=== PATIENT | female | born 1955 | race Caucasian/White ===

== ENCOUNTER 2017-03-12 09:32 | Emergency (ER) | payer OTHER ==
[2017-03-12 09:39] VITALS: BP 131/77
[2017-03-12] MEDS ORDERED: Ketorolac INJ* 30 MG/ML 1 ML VIAL IV PUSH ONE (10:18)
[2017-03-12] MEDS ORDERED: NS 0.9% 1000 ML* 1,000 ML IV ONE (10:18)
[2017-03-12] MEDS ORDERED: diPHENhydraMINE IV* 50 MG/ML 1 ml VIAL (BENADRYL) IV ONE (10:20)
--- NOTE | 2017-03-12 10:30 | ED ---
Headache - HPI Summary HPI Summary: Rt hand dominant pt here w/ Rt sided KLINE x 2 days. Started as intermittent sharp pain along Rt shoulder and traveled up into Rt side of head. She tolerated this but last night kept her up. She denies alleviation or exacerbation with movement. She has a h/o back pain, muscle tightness and migraines. Had relief w / recent chiropractic adjustment but sx are starting to return. Denies N/V, fever, chills, URI sx, visual change although admits to mild light sensitivity. Denies chest pain, SOB, numbness, tingling, weakness, slurred speech, syncope. Takes gabapentin for chronic pain and trazodone to sleep at night. Reports she was on morphine for pain in the past and is happy to be off of this medication as she can now function - works PT at [employer], walks her dog every morning, helps take care of her grandchild (4 y.o. weighs 30lbs), crochets /knits/quilts and uses e-tablet while watching TV in the evenings. No recent injury she recalls. NOTE: h/o gastric ulcers - takes omeprazole daily and drinks a smoothie for breakfast. This combination has improved stomach pain. Denies h/o anemia, GI bleed, current rectal bleeding/dark tarry stools. Follows w/ PCP. - History Of Current Complaint Chief Complaint: EDHeadache Stated Complaint: PAIN FROM SHOULDER TO HEAD Time Seen by Provider: 03/12/17 09:53 Hx Obtained From: Patient - Allergies/Home Medications Allergies/Adverse Reactions: Allergies Allergy/AdvReac Type Severity Reaction Status Date / Time Pregabalin [From Lyrica] Allergy Severe Dizziness Verified 03/12/17 09:36 Tramadol [From Ultram] Allergy Severe "FEELS Verified 03/12/17 09:36 LIKE SKIN IS CRAWLING" Latex Allergy Intermediate Rash Verified 03/12/17 09:36 SULFA DRUGS Allergy Severe Hives Uncoded 03/12/17 09:36 PMH/Surg Hx/FS Hx/Imm Hx Previously Healthy: Yes Endocrine/Hematology History: Reports: Hx Anemia - during only Denies: Hx Anticoagulant Therapy, Hx Blood Disorders, Hx Unexplained Bleeding Cardiovascular History: Denies: Hx Aneurysm, Hx Cardiac Arrest, Hx Congenital Heart Disease, Hx Congestive Heart Failure, Hx Hypercholesterolemia, Hx Hypertension GI History: Reports: Hx Ulcer - gastritis - currently take omeprazole Denies: Hx Gastrointestinal Bleed History: Reports: Hx Kidney Infection - X 1 IN THE PAST, YEARS AGO Musculoskeletal History: Reports: Hx Arthritis - LEFT THUMB, NECK, LOWER BACK, FINGERS, Other Musculoskeletal History - DJD, TENOSYNOVITIS RADIAL STYLOID LEFT HAND Sensory History: Reports: Hx Contacts or Glasses - GLASSES Denies: Hx Hearing Aid Opthamlomology History: Reports: Hx Contacts or Glasses - GLASSES Neurological History: Reports: Hx Migraine - HX OF - NONE RECENTLY Psychiatric History: Reports: Hx Anxiety - ON MEDICATION FOR, Hx Depression - ON MEDICATION FOR - Surgical History Surgery Procedure, Year, and Place: AGE 4 TONSILLECTOMY- [place]. 1972- PILONIDAL CYST-[place]. 1977-TUBAL LIGATION- [place]. 1992-SINUS SURGERY- [place]. 08/[place] [facility] [place] Anesthesia Reactions: No Infectious Disease History: No Infectious Disease History: Denies: History Other Infectious Disease, Traveled Outside the in Last 30 Days - Family History Known Family History: Positive: Cardiac Disease - cardiac dz, father w/ aneurysm , Diabetes - Social History Occupation: Employed Part-time Lives: Alone Alcohol Use: None Hx Substance Use: No Substance Use Type: Reports: None Smoking Status (MU): Current Every Day Smoker Type: Cigarettes Amount Used/How Often: 3/4 PPD X 49 YEARS Length of Time of Smoking/Using Tobacco: 49 YRS Have You Smoked in the Last Year: Yes Review of Systems Constitutional: Negative Positive: Photophobia - mild. Negative: Blurred Vision, Diplopia, Drainage, Erythema ENT: Negative Cardiovascular: Negative Negative: Chest Pain Respiratory: Negative Negative: Shortness Of Breath Gastrointestinal: Negative Genitourinary: Negative Positive: no symptoms reported Musculoskeletal: Other - see HPI Skin: Negative Positive: Headache - see HPI. Negative: Weakness, Paresthesia, Numbness Psychological: Normal All Other Systems Reviewed And Are Negative: Yes Physical Exam Triage Information Reviewed: Yes Vital Signs On Initial Exam: Initial Vitals Temp Pulse Resp BP Pulse Ox 97.5 F 77 16 131/77 99 03/12/17 09:37 03/12/17 09:37 03/12/17 09:37 03/12/17 09:37 03/12/17 09:37 Vital Signs Reviewed: Yes Appearance: Positive: Well-Appearing, No Pain Distress - however pt is resting room w/ lights out, Well-Nourished - thin Skin: Positive: Warm, Dry Head/Face: Positive: Normal Head/Face Inspection - sinuses NTTP Eyes: Positive: Normal, EOMI, SUSANA - mild photophobia, Conjunctiva Clear ENT: Positive: Normal ENT inspection, Hearing grossly normal, Pharynx normal, TMs normal. Negative: Nasal congestion, Nasal drainage, Tonsillar swelling, Tonsillar exudate Neck: Positive: Supple, Nontender, No Lymphadenopathy Respiratory/Lung Sounds: Positive: Clear to Auscultation, Breath Sounds Present. Negative: Rales, Rhonchi, Wheezes Cardiovascular: Positive: Normal, RRR, Pulses are Symmetrical in both Upper and Lower Extremities, S1, S2. Negative: Murmur, Rub Abdomen Description: Positive: Nontender, No Organomegaly, Soft Bowel Sounds: Positive: Present Musculoskeletal: Positive: Normal, Strength/ROM Intact Neurological: Positive: Normal, Sensory/Motor Intact, Alert, Oriented to Person Place, Time, CN Intact II-III Psychiatric: Positive: Normal - [place] Coma Scale Coma Scale Total: 15 Diagnostics - Vital Signs Vital Signs Temp Pulse Resp BP Pulse Ox 03/12/17 09:37 97.5 F 77 16 131/77 99 - Laboratory Lab Statement: Any lab studies that have been ordered have been reviewed, and results considered in the medical decision making process. Re-Evaluation - Re-Evaluation First Eval Change: Improved - "I feel much better" Headache Course/Dx - Course Course Of Treatment: Pt presents w/ progressive worening of Rt sided KLINE - thought to be tension KLINE w/ migraine. Pt improved w/ migraine cocktail and feels she is ready to go home. Advised rest and f/u w/ PCP, chiropractor. Reviewed danger s/sx of when to return to ED - pt agrees w/ plan. - Diagnoses Provider Diagnoses: Acute tension headache Discharge - Discharge Plan Condition: Stable Disposition: HOME Patient Education Materials: Tension Headache (ED), Muscle Strain (ED) Forms: *Work Release Referrals: Hannah Styles MD [Primary Care Provider] - Additional Instructions: You appear to have a tension headache, triggering a migraine today. This appears to be from tight right sided muscle tension with spasm. Your symptoms improved with IV fluids, and NSAID and benadryl. It is advised that you rest, gently stretch and stay hydrated. Follow-up with PCP and chiropractor. *If headache returns and is worse or if you develop change in vision, neck pain , chest pain, trouble breathing, numbness, tingling, weakness, return to ED
== END 2017-03-12 12:00 | disposition home or self-care (01) ==
LOC: ED 09:32
DX: G44.209 Tension-type headache, unspecified, not intractable (principal); H53.149 Visual discomfort, unspecified; F17.210 Nicotine dependence, cigarettes, uncomplicated
CPT/HCPCS: 96374; 96375; 99283; J1200; J1885

== ENCOUNTER 2018-01-02 18:44 | Emergency (ER) | payer OTHER ==
[2018-01-02 19:34] VITALS: BP 116/72
[2018-01-02] MEDS ORDERED: Ibuprofen TAB* 400 MG PO ONE (20:04)
[2018-01-02] MEDS ORDERED: HYDROcodone/ACETAMIN 5-325 MG* 1 TAB PO ONE (20:05)
[2018-01-02] MEDS ORDERED: Neomyc/Polym/HC 1% OTIC SUSP* **OTIC RIGHT EAR ONE (20:05)
--- NOTE | 2018-01-02 20:32 | UC ---
Hernandez Larios Jason, scribed for Aubrey Flores MD on 01/02/18 at 2000 . Ear Complaint HPI - HPI Summary HPI Summary: This patient is a 62 year old F presenting to [facility] with a chief complaint of sharp right ear pain since this morning. She states that she was sewing when she began experiencing this pain. Additionally, she states this does not feel like shingles. The patient rates the pain 3/10 in severity. Symptoms aggravated by nothing. Symptoms alleviated by nothing. Patient denies rash, ear surgery. The pt takes aleve twice a day. - History of Current Complaint Chief Complaint: UCEar Stated Complaint: EAR PAIN OUTER Time Seen by Provider: 01/02/18 19:49 Hx Obtained From: Patient Onset/Duration: Sudden Onset, Lasting Hours - Since this morning, Still Present Pain Intensity: 3 Pain Scale Used: 0-10 Numeric Aggravating Factors: Nothing Alleviating Factors: Nothing - Allergies/Home Medications Allergies/Adverse Reactions: Allergies Allergy/AdvReac Type Severity Reaction Status Date / Time MS Pregabalin [From Lyrica] Allergy Severe Dizziness Verified 01/02/18 19:27 MS Tramadol [From Ultram] Allergy Severe "FEELS Verified 01/02/18 19:27 LIKE SKIN IS CRAWLING" MS Latex [Latex] Allergy Intermediate Rash Verified 01/02/18 19:27 SULFA DRUGS Allergy Severe Hives Uncoded 01/02/18 19:27 Home Medications: Home Medications Ibuprofen TAB* [Motrin TAB* 400 MG] 400 mg PO Q6H PRN 01/02/18 [History Confirmed 01/02/18] PMH/Surg Hx/FS Hx/Imm Hx Previously Healthy: Yes Endocrine History: Other Other Endocrine History: diabetes Other History Of: Negative For: Anticoagulant Therapy - Surgical History Surgical History: Yes Surgery Procedure, Year, and Place: AGE 4 TONSILLECTOMY- [place]. 1972- PILONIDAL CYST-[place]. 1977-TUBAL LIGATION- [place]. 1992-SINUS SURGERY- [place]. 08/21 RIGHT HAND SURGERY- [facility] [place] - Family History Known Family History: Positive: Cardiac Disease - cardiac dz, father w/ aneurysm , Diabetes - Social History Alcohol Use: None Substance Use Type: None Smoking Status (MU): Current Every Day Smoker Type: Cigarettes Amount Used/How Often: 3/4 PPD X 49 YEARS Length of Time of Smoking/Using Tobacco: 49 YRS Have You Smoked in the Last Year: Yes When Did the Patient Quit Smoking/Using Tobacco: 08/01/15 Household Exposure Type: Cigarettes - Immunization History Most Recent Influenza Vaccination: fall 2014 Most Recent Tetanus Shot: up to date Review of Systems Skin: Negative - rash ENT: Other - sharp right ear pain All Other Systems Reviewed And Are Negative: Yes Physical Exam - Summary Physical Exam Summary: General: well-appearing, no pain distress Skin: warm, color reflects adequate perfusion, dry Head: normal Eyes: EOMI, SUSANA ENT: Right ear canal has debris. Right pinna is tender to palpation, mildly erythematous, with no vesicles. TMJ is non tender to palpation. TMs are normal. Neck: supple, nontender Respiratory: CTA, breath sounds present Cardiovascular: RRR Abdomen: soft, nontender Bowel: present Musculoskeletal: normal, strength/ROM intact Neurological: normal, sensory/motor intact, A&O x3 Psychological: affect/mood appropriate Triage Information Reviewed: Yes Vital Signs: Initial Vital Signs Temp 98.6 F 01/02/18 19:29 Pulse 66 01/02/18 19:29 Resp 22 01/02/18 19:29 BP 116/72 01/02/18 19:29 Pulse Ox 100 01/02/18 19:29 Ear Complaint Course/Dx - Course Course Of Treatment: In the UC course the patient was given hydrocodone, ibuprofen, and neomycin. THERE IS DEBRIS IN THE RT EAR CANAL. THE RT PINNAE IS ERYTHEMATOUS, THERE ARE NO VESICLES. WILL TREAT OE. POSSIBLE EARLY SHINGLES. DISCUSSED NEED FOR F/U WITH PATIENT. - Differential Dx/Diagnosis Provider Diagnoses: RIGHT PINNAE PAIN Discharge - Discharge Plan Condition: Stable Disposition: HOME Prescriptions: HYDROcodone/ACETAMIN 5-325 MG* [[place] 5-325 TAB*] 1 tab PO Q4H PRN #20 tab MDD 6 PRN Reason: Pain Patient Education Materials: Earache (ED) Referrals: Sherrell Lux MD [Primary Care Provider] - Additional Instructions: FOLLOW UP WITH YOUR DOCTOR. GET RECHECKED FOR ANY WORSENING OF YOUR CONDITION; PAIN, RASH, YOU FEEL ILL, FEVER OR QUESTIONS OR CONCERNS. The documentation as recorded by the Hernandez mark Jason accurately reflects the service I personally performed and the decisions made by me, Aubrey Flores MD.
== END 2018-01-02 20:41 | disposition home or self-care (01) ==
LOC: UCEAST 18:44
DX: H92.01 Otalgia, right ear (principal); E11.9 Type 2 diabetes mellitus without complications; Z88.5 Allergy status to narcotic agent; Z88.2 Allergy status to sulfonamides; Z88.8 Allergy status to other drugs, medicaments and biological substances; Z91.040 Latex allergy status; Z87.891 Personal history of nicotine dependence
CPT/HCPCS: 99213; A9270-GY; G0463